=== PATIENT | female | born 1955 | race Caucasian/White ===

== ENCOUNTER 2018-03-28 09:42 | Emergency (ER) | payer SELFPAY | END 2018-03-28 10:08 | disposition home or self-care (01) | LOC: MADERS 09:42 | DX: S83.91XA Sprain of unspecified site of right knee, initial encounter (principal); X58.XXXA Exposure to other specified factors, initial encounter | CPT/HCPCS: 99283 ==

== ENCOUNTER 2020-11-23 08:45 | Emergency (ER) | payer MEDICARE, SELFPAY | END 2020-11-23 09:43 | disposition home or self-care (01) | LOC: MADERS 08:45 | DX: S60.444A External constriction of right ring finger, initial encounter (principal); W49.04XA Ring or other jewelry causing external constriction, initial encounter | CPT/HCPCS: 99283 ==